=== PATIENT | male | born 1970 | race African-American/Black ===

== ENCOUNTER 2018-10-13 17:02 | Emergency (ER) | payer SELFPAY ==
[2018-10-13] MEDS ORDERED: DIPHENHYDRAMINE 50 MG/ML VIAL ONE (17:46)
[2018-10-13] MEDS ORDERED: KETOROLAC 30 MG/ML INJ ONE (17:46)
[2018-10-13] MEDS ORDERED: METOCLOPRAMIDE 10 MG/2mL INJ ONE (17:46)
--- NOTE | 2018-10-13 18:00 | RAD REPORT ---
EXAM DESCRIPTION: CT - Head Brain Wo Cont - 10/13/2018 5:44 pm CLINICAL HISTORY: HEADACHE Headache, drowsiness COMPARISON: <Comparisons> TECHNIQUE: All CT scans are performed using dose optimization technique as appropriate and may inclu de automated exposure control or mA/KV adjustment according to patient size. FINDINGS: No intracranial hemorrhage, hydrocephalus or extra-axial fluid collection.No areas of brai n edema or evidence of midline shift. The paranasal sinuses and mastoids are clear. The calvarium is intact. IMPRESSION: No acute intracranial abnormality.
--- NOTE | 2018-10-13 19:04 | ER ---
Nurse's Notes [facility] Name: Gómez Calvo Age: 48 yrs Sex: Male : 1970 Arrival Date: 10/13/2018 Time: 17:06 Bed 28 Private MD: Diagnosis: Headache Presentation: 10/13 17:10 Presenting complaint: Patient states: "I've had a headache over the weekend but it got aa5 worse yesterday and now every time I cough or sneeze I can feel the blood flow going up my head and it's concerning" . Pt also c/o "knots under my arms". Pt denies SOB. 17:10 Transition of care: patient was not received from another setting of care. Onset of aa5 symptoms was September 2018. Risk Assessment: Do you want to hurt yourself or someone else? Patient reports no desire to harm self or others. Initial Sepsis Screen: Does the patient meet any 2 criteria? HR > 90 bpm. Does the patient have a suspected source of infection? No. Patient's initial sepsis screen is negative. Care prior to arrival: None. 17:10 Acuity: TAMARA 3 aa5 17:10 Method Of Arrival: Ambulatory aa5 Triage Assessment: 18:01 Headache History: Denies prior headaches. General: Appears in no apparent distress. rv comfortable, Behavior is calm, cooperative, Smells of. Pain: Complains of pain in head Pain currently is 8 out of 10 on a pain scale. Pain began suddenly, Also complains of no other associated symptoms. Historical: - Allergies: 17:10 No Known Allergies; aa5 - Home Meds: 17:10 losartan oral oral [Active]; Metformin Oral [Active]; Hydrochlorothiazide Oral aa5 [Active]; "another blood pressure pill" [Active]; - PMHx: 17:10 Hypertension; Diabetes - NIDDM; Hyperlipidemia; aa5 - PSHx: 17:10 Sx to "left groin and scrotum to remove gangrene"; aa5 - Immunization history:: Adult Immunizations unknown. - Social history:: Smoking status: Patient/guardian denies using tobacco. - Ebola Screening: : No symptoms or risks identified at this time. Screenin:00 Abuse screen: Denies threats or abuse. Denies injuries from another. Nutritional rv screening: No deficits noted. Tuberculosis screening: No symptoms or risk factors identified. Fall Risk None identified. Assessment: 17:59 General: Appears in no apparent distress. comfortable, Behavior is calm, cooperative. rv Pain: Complains of pain in head. Neuro: Level of Consciousness is awake, alert, obeys commands, Oriented to person, place, time, situation, Reports headache. Cardiovascular: Patient's skin is warm and dry. Respiratory: Airway is patent. GI: No signs and/or symptoms were reported involving the gastrointestinal system. : No signs and/or symptoms were reported regarding the genitourinary system. EENT: No signs and/or symptoms were reported regarding the EENT system. Derm: Skin is intact. Musculoskeletal: No signs and/or symptoms reported regarding the musculoskeletal system. Vital Signs: 17:11 BP 105 / 78; Pulse 106; Resp 18 S; Temp 98.5(O); Pulse Ox 95% on R/A; Weight 111.13 kg aa5 (R); Height 5 ft. 6 in. (167.64 cm) (R); Pain 10/10; 18:34 BP 113 / 75; Pulse 87; Resp 17; Temp 98; Pulse Ox 98% on R/A; rv 19:08 BP 115 / 76; Pulse 86; Resp 17; Pulse Ox 96% on R/A; rv 17:11 Body Mass Index 39.54 (111.13 kg, 167.64 cm) aa5 ED Course: 17:06 Patient arrived in ED. mr 17:10 Keith Garcia MD is Attending Physician. gs 17:10 Arm band placed on Patient placed in an exam room, on a stretcher. aa5 17:22 Triage completed. aa5 17:36 Jomar Conteh, SURENDRA is Primary Nurse. rv 17:43 CT completed. Patient tolerated procedure well. Patient moved to CT. Patient moved back nj from CT. 17:44 CT Head Brain wo Cont In Process Unspecified. EDMS 17:50 Inserted saline lock: 22 gauge in right antecubital area, using aseptic technique. rv 18:00 Patient has correct armband on for positive identification. Bed in low position. Call rv light in reach. Side rails up X 1. Pulse ox on. NIBP on. 18:35 No provider procedures requiring assistance completed. IV discontinued, intact, rv bleeding controlled, No redness/swelling at site. Pressure dressing applied. Administered Medications: 17:50 Drug: TORadol - Ketorolac 15 mg Route: IVP; Site: left antecubital; rv 18:34 Follow up: Response: No adverse reaction; Marked relief of symptoms rv 17:52 Drug: Benadryl 25 mg Route: IVP; Site: left antecubital; rv 18:34 Follow up: Response: No adverse reaction; Marked relief of symptoms rv 17:53 Drug: Reglan 5 mg Route: IVP; Site: left antecubital; rv 18:33 Follow up: Response: No adverse reaction; Marked relief of symptoms rv Outcome: 18:35 Discharged to home ambulatory, with friend. rv 18:35 Condition: good 18:35 Discharge instructions given to patient, Instructed on discharge instructions, follow up and referral plans. Demonstrated understanding of instructions, follow-up care. 19:03 Discharge ordered by . chaya 19:09 Patient left the ED. rv Signatures: Dispatcher [employer] Rae Dotson Audri, RN RN aa5 Home Dunn Gregory, MD MD gs Vicente, Ronaldo, RN RN rv
--- NOTE | 2018-10-13 19:05 | EDPHYS ---
Physician Documentation [facility] Name: Gómez Calvo Age: 48 yrs Sex: Male : 1970 Arrival Date: 10/13/2018 Time: 17:06 Bed 28 Private MD: ED Physician Keith Garcia HPI: 10/13 18:54 This 48 yrs old Black Male presents to ER via Ambulatory with complaints of Headache. gs 18:54 The patient complains of pain to the right gnosticism and left gnosticism. The patient gs describes the headache as pounding. Onset: The symptoms/episode began/occurred 2 day(s) ago, and became worse and became persistent. Onset: The symptoms/episode began/occurred suddenly. Associated signs and symptoms: Pertinent negatives: altered mental status, Photophobia vision loss, vomiting, weakness. Severity of symptoms: At its worst the pain was severe, in the emergency department the pain has improved, moderately. The symptoms are alleviated by nothing. the symptoms are aggravated by movement. The patient has experienced similar episodes in the past, a few times. Historical: - Allergies: 17:10 No Known Allergies; aa5 - Home Meds: 17:10 losartan oral oral [Active]; Metformin Oral [Active]; Hydrochlorothiazide Oral aa5 [Active]; "another blood pressure pill" [Active]; - PMHx: 17:10 Hypertension; Diabetes - NIDDM; Hyperlipidemia; aa5 - PSHx: 17:10 Sx to "left groin and scrotum to remove gangrene"; aa5 - Immunization history:: Adult Immunizations unknown. - Social history:: Smoking status: Patient/guardian denies using tobacco. - Ebola Screening: : No symptoms or risks identified at this time. ROS: 18:54 All other systems are negative. gs Exam: 18:54 Head/Face: Normocephalic, atraumatic. Eyes: Pupils equal round and reactive to light, gs extra-ocular motions intact. Lids and lashes normal. Conjunctiva and sclera are non-icteric and not injected. Cornea within normal limits. Periorbital areas with no swelling, redness, or edema. ENT: Nares patent. No nasal discharge, no septal abnormalities noted. Tympanic membranes are normal and external auditory canals are clear. Oropharynx with no redness, swelling, or masses, exudates, or evidence of obstruction, uvula midline. Mucous membranes moist. Neck: Trachea midline, no thyromegaly or masses palpated, and no cervical lymphadenopathy. Supple, full range of motion without nuchal rigidity, or vertebral point tenderness. No Meningismus. Cardiovascular: Regular rate and rhythm with a normal S1 and S2. No gallops, murmurs, or rubs. Normal PMI, no JVD. No pulse deficits. Respiratory: Lungs have equal breath sounds bilaterally, clear to auscultation and percussion. No rales, rhonchi or wheezes noted. No increased work of breathing, no retractions or nasal flaring. Abdomen/GI: Soft, non-tender, with normal bowel sounds. No distension or tympany. No guarding or rebound. No evidence of tenderness throughout. Back: No spinal tenderness. No costovertebral tenderness. Full range of motion. Skin: Warm, dry with normal turgor. Normal color with no rashes, no lesions, and no evidence of cellulitis. MS/ Extremity: Pulses equal, no cyanosis. Neurovascular intact. Full, normal range of motion. Neuro: Awake and alert, GCS 15, oriented to person, place, time, and situation. Cranial nerves II-XII grossly intact. Motor strength 5/5 in all extremities. Sensory grossly intact. Cerebellar exam normal. Normal gait. 18:54 Constitutional: The patient appears alert, awake. 18:54 Chest/axilla: Axilla: i do not feel any lymph nodes in axilla, pt states he feels them intermittently. Vital Signs: 17:11 BP 105 / 78; Pulse 106; Resp 18 S; Temp 98.5(O); Pulse Ox 95% on R/A; Weight 111.13 kg aa5 (R); Height 5 ft. 6 in. (167.64 cm) (R); Pain 10/10; 18:34 BP 113 / 75; Pulse 87; Resp 17; Temp 98; Pulse Ox 98% on R/A; rv 19:08 BP 115 / 76; Pulse 86; Resp 17; Pulse Ox 96% on R/A; rv 17:11 Body Mass Index 39.54 (111.13 kg, 167.64 cm) aa5 MDM: 17:29 Patient medically screened. gs 18:54 Differential diagnosis: sinusitis, tension headache, vasomotor headache. Data reviewed: vital signs, nurses notes, radiologic studies. Counseling: I had a detailed discussion with the patient and/or guardian regarding: the historical points, exam findings, and any diagnostic results supporting the discharge/admit diagnosis, radiology results, the need for outpatient follow up. Response to treatment: the patient's symptoms have resolved after treatment, and as a result, I will discharge patient. 10/13 17:32 Order name: CT Head Brain wo Cont; Complete Time: 18:07 gs Administered Medications: 17:50 Drug: TORadol - Ketorolac 15 mg Route: IVP; Site: left antecubital; rv 18:34 Follow up: Response: No adverse reaction; Marked relief of symptoms rv 17:52 Drug: Benadryl 25 mg Route: IVP; Site: left antecubital; rv 18:34 Follow up: Response: No adverse reaction; Marked relief of symptoms rv 17:53 Drug: Reglan 5 mg Route: IVP; Site: left antecubital; rv 18:33 Follow up: Response: No adverse reaction; Marked relief of symptoms rv Disposition: 10/13/18 19:03 Discharged to Home. Impression: Headache. - Condition is Stable. - Discharge Instructions: General Headache Without Cause, Migraine Headache. - Medication Reconciliation Form, Thank You Letter, Antibiotic Education, Prescription Opioid Use form. - Follow up: Private Physician; When: 2 - 3 days; Reason: Re-evaluation by your physician. Signatures: Dispatcher [employer] Brittany Reeves RN RN aa5 Keith Garcia MD MD Jomar Conteh RN RN rv Corrections: (The following items were deleted from the chart) 19:01 18:07 This 48 yrs old Black Male presents to ER via Ambulatory with complaints of gs Headache, Sinus Congestion, Arm Pain. 19:09 19:03 10/13/2018 19:03 Discharged to Home. Impression: Headache. Condition is Stable. rv Forms are Medication Reconciliation Form, Thank You Letter, Antibiotic Education, Prescription Opioid Use. Follow up: Private Physician; When: 2 - 3 days; Reason: Re-evaluation by your physician.
== END 2018-10-13 19:09 | disposition home or self-care (01) ==
LOC: ER 17:02
DX: R51 Headache (principal); I10 Essential (primary) hypertension; E11.9 Type 2 diabetes mellitus without complications
CPT/HCPCS: 70450; 96374; 96375; 99284; J2765